=== PATIENT | male | born 1970 | race Caucasian/White ===

== ENCOUNTER 2019-08-27 08:57 | Emergency (ER) | payer OTHER ==
[~2019-08-27] VITALS: Ht 172.7 cm; Wt 113.9 kg
[2019-08-27 09:01] VITALS: Ht 172.7 cm; Wt 113.9 kg
[2019-08-27 09:58] LABS: BASOPHIL % 0.6 % (0-2); CARBON DIOXIDE 32.7 mmol/L (21-32); CHLORIDE SERUM 101 mmol/L (98-107); CREATININE SERUM 1.2 mg/dL (0.7-1.3); GFR1 > 60 mL/min; GLUCOSE SERUM 86 mg/dL (74-106); PLATELET COUNT 156 x10^3mcL (130-400); POTASSIUM SERUM 4.4 mmol/L (3.5-5.1); RED CELL DISTRIBUTION WIDTH 13.3 % (11.5-14.5); SODIUM SERUM 135 mmol/L (136-145)
[2019-08-27 11:21] VITALS: BP 137/94
== END 2019-08-27 11:21 | disposition home or self-care (01) ==
LOC: ED 08:57
PROVIDERS: Emergency Medicine
DX: R05 Cough (principal); R07.89 Other chest pain; R06.02 Shortness of breath; R06.2 Wheezing
CPT/HCPCS: 36415; J1885; J7512; J7620; Q0092

== ENCOUNTER 2019-10-06 12:15 | Inpatient (IN) | payer OTHER ==
[~2019-10-06] VITALS: Ht 175.3 cm; Wt 112.5 kg
[2019-10-06 12:21] VITALS: Ht 175.3 cm; Wt 112.5 kg
[2019-10-06 13:23] LABS: BASOPHIL % 0.9 % (0-2); PLATELET COUNT 159 x10^3mcL (130-400)
[2019-10-06 13:34] LABS: CALCIUM 9.1 mg/dL (8.5-10.1); CARBON DIOXIDE 28.1 mmol/L (21-32); CHLORIDE SERUM 104 mmol/L (98-107); CREATININE SERUM 1.1 mg/dL (0.7-1.3); GFR1 > 60 mL/min; GLUCOSE SERUM 86 mg/dL (74-106); POTASSIUM SERUM 4.6 mmol/L (3.5-5.1); SODIUM SERUM 141 mmol/L (136-145)
[2019-10-06 13:38] LABS: ALBUMIN 4.3 g/dL (3.4-5.0); ALKALINE PHOSPHATASE 81 U/L (46-116); ALT/SGPT 55 U/L (16-63); AST/SGOT 37 U/L (15-37); CHOLESTEROL 189 mg/dL (<200); HDL CHOLESTEROL 47 mg/dL (40-60); TOTAL PROTEIN, SERUM 7.4 g/dL (6.4-8.2); TRIGLYCERIDES 51 mg/dL (<150)
[2019-10-06] MEDS ORDERED: PANTOPRAZOLE SO20 M1 (15:08)
[2019-10-06] MEDS ORDERED: TES100 (15:09)
[2019-10-06] MEDS ORDERED: LORADAMED10 M1 PO (15:09)
[2019-10-06 15:57] LABS: MAGNESIUM 1.9 mg/dL (1.8-2.4); PHOSPHOROUS 3.6 mg/dL (2.5-4.9)
[2019-10-06 16:05] LABS: T3 TOTAL 1.46 ng/mL
[2019-10-06 16:15] LABS: FREE T4 1.08 ng/dL (0.76-1.46); FREE THYROXINE INDEX 2.9 ug/dL (1.4-4.5); T4(THYROXINE) 8.8 ug/dL (4.7-13.3)
[2019-10-06 21:00] VITALS: BP 133/98
[2019-10-06 21:54] VITALS: BP 140/86
[2019-10-06 23:42] LABS: BASOPHIL % 0.6 % (0-2); PLATELET COUNT 165 x10^3mcL (130-400); RED CELL DISTRIBUTION WIDTH 13.2 % (11.5-14.5)
[2019-10-07] VITALS: BP 140/86
[2019-10-07 05:20] VITALS: BP 143/85
[2019-10-07 06:51] LABS: CALCIUM 9.1 mg/dL (8.5-10.1); CARBON DIOXIDE 26.5 mmol/L (21-32); CHLORIDE SERUM 105 mmol/L (98-107); CREATININE SERUM 1.1 mg/dL (0.7-1.3); GFR1 > 60 mL/min; GLUCOSE SERUM 88 mg/dL (74-106); POTASSIUM SERUM 4.4 mmol/L (3.5-5.1); SODIUM SERUM 142 mmol/L (136-145)
[2019-10-07 07:21] LABS: BASOPHIL % 0.9 % (0-2); PLATELET COUNT 164 x10^3mcL (130-400); RED CELL DISTRIBUTION WIDTH 13.2 % (11.5-14.5)
[2019-10-07 07:46] VITALS: BP 121/87
[2019-10-07 11:32] VITALS: BP 129/75
[2019-10-07 15:42] VITALS: BP 104/62
[2019-10-07 20:53] VITALS: BP 125/69
[2019-10-08 05:31] VITALS: BP 131/77
[2019-10-08 06:22] LABS: BASOPHIL % 0.1 % (0-2); PLATELET COUNT 170 x10^3mcL (130-400); RED CELL DISTRIBUTION WIDTH 12.9 % (11.5-14.5)
[2019-10-08 07:06] LABS: CALCIUM 9.4 mg/dL (8.5-10.1); CARBON DIOXIDE 25.4 mmol/L (21-32); CHLORIDE SERUM 103 mmol/L (98-107); CREATININE SERUM 1.2 mg/dL (0.7-1.3); GFR1 > 60 mL/min; GLUCOSE SERUM 158 mg/dL (74-106); SODIUM SERUM 138 mmol/L (136-145)
[2019-10-08 07:28] VITALS: BP 121/79
[2019-10-08 16:15] VITALS: BP 118/78
[2019-10-08] MEDS ORDERED: SYMBICORT1 AE3 IH (16:23)
[2019-10-08] MEDS ORDERED: SINGULAIR10 MG PO (16:24)
[2019-10-08] MEDS ORDERED: MEDDP PO (16:25)
[2019-10-08] MEDS ORDERED: ZESTRIL10 MG PO (16:26)
[2019-10-08 17:12] VITALS: BP 121/71
== END 2019-10-08 17:46 | disposition home or self-care (01) | DRG 206 ==
LOC: ED 12:15 → DU 16:27
PROVIDERS: Emergency Medicine; ADMIT Student in an Organized Health Care Education/Training Program
DX: M94.0 Chondrocostal junction syndrome [Tietze] (principal); K21.9 Gastro-esophageal reflux disease without esophagitis; J45.909 Unspecified asthma, uncomplicated; I10 Essential (primary) hypertension; G47.33 Obstructive sleep apnea (adult) (pediatric); F41.9 Anxiety disorder, unspecified; Z87.820 Personal history of traumatic brain injury; Z90.49 Acquired absence of other specified parts of digestive tract; Z79.899 Other long term (current) drug therapy; Z98.1 Arthrodesis status; Z82.49 Family history of ischemic heart disease and other diseases of the circulatory system; Z23 Encounter for immunization
CPT/HCPCS: 36600; 83880; 84439; 90658; 90732; A9500; C9113; G0378; J1644; J2785; J2930; J7620; Q0092; Q9967